=== PATIENT | female | born 1965 | race Caucasian/White ===

== ENCOUNTER 2018-08-02 18:50 | Emergency (ER) | payer OTHER ==
[2018-08-02] MEDS ORDERED: ALBUTEROL SO4 2.5/IPRATROPIUM 0.5 INH SOL 3 ML VIAL.NEB. NEB ONE ×2 (19:00→19:22)
--- NOTE | 2018-08-02 19:00 | PDOC ---
Rapid Medical Evaluation Chief Complaint: Shortness of Breath Time Seen by Provider: 08/02/18 18:55 Medical Evaluation: 08/02/18 18:56 Pt c/o: shortness of breath with no improvement with inhaler x 3 days, no risks factors for PE, Pt on brief exam: lcta, no wheezing, appears dyspneic Pt ordered for: cxr, duoneb, cbc, d-dimer Pt to proceed to the ED Discharge Disposition - Diagnosis Shortness of breath - Referrals - Patient Instructions - Post Discharge Activity
[2018-08-02 19:09] VITALS: BMI 31.1
[2018-08-02 19:42] LABS: EOS % 0.6 % (0-4.5); HEMATOCRIT 36.8 % (32.4-45.2); HEMOGLOBIN 12.6 GM/dL (10.7-15.3); LYMPH % 19.3 % (8-40); MCH 29.9 pg (25.7-33.7); MCHC 34.3 g/dl (32.0-36.0); MEAN CELL VOLUME 87.4 fl (80-96); MEAN PLT VOLUME 10.3 fl (7.5-11.1); MONO % 6.2 % (3.8-10.2); NEUT % 72.9 % (42.8-82.8); PLATELET COUNT 225 K/MM3 (134-434); RBC 4.21 M/mm3 (3.60-5.2); RDW 13.1 % (11.6-15.6); WHITE BLOOD COUNT 9.8 K/mm3 (4.0-10.0)
--- NOTE | 2018-08-02 21:26 | PDOC ---
History of Present Illness - General Chief Complaint: Shortness of Breath Stated Complaint: SOB Time Seen by Provider: 08/02/18 18:55 History Source: Patient Exam Limitations: No Limitations - History of Present Illness Initial Comments: 08/02/18 21:22 Best Contact: PCP:Cannot recall Pmhx:Asthma, hypothyroid Pshx: Arm cyst removed, TVH Allergies:NKDA FH:0 Social Hx: Cigarettes/ 0 Alcohol/ 0 Drugs/0 LMP:07/20/2017 53-year-old female presents to the emergency department complaining of shortness of breath 4 days. Patient states her was recently admitted to the hospital times one week ago causing her increased anxiety. Patient states her shortness of breath basically consists of hyperventilating on the thoughts of her being in the hospital. Patient denies fever, chills, nausea/vomiting, headache, dizziness, lightheadedness, facial pains, neck pain/ stiffness, back pains, chest pain, shortness of breath, abdominal pains, flank pains, urinary symptoms, Phill numbness or tingling sensation. Patient states she experienced similar symptoms previously when she has anxiety. Past History - Past Medical History Allergies/Adverse Reactions: Allergies Allergy/AdvReac Type Severity Reaction Status Date / Time No Known Allergies Allergy Verified 08/02/18 18:58 Asthma: Yes COPD: No - Surgical History Abdominal Surgery: (fibroids) - Suicide/Smoking/Psychosocial Hx Smoking History: Never smoked Information on smoking cessation initiated: No Hx Alcohol Use: No Drug/Substance Use Hx: No Review of Systems - Review of Systems Able to Perform ROS?: Yes Comments:: 08/02/18 21:24 CONSTITUTIONAL: Absent: fever, chills, diaphoresis, generalized weakness, malaise, loss of appetite HEENT: Absent: rhinorrhea, nasal congestion, throat pain, throat swelling, difficulty swallowing, mouth swelling, ear pain, eye pain, visual Changes CARDIOVASCULAR: Absent: chest pain, loss of consciousness, palpitations, irregular heart rate, peripheral edema RESPIRATORY: +hyperventilation/sob Absent: cough, dyspnea with exertion, orthopnea, wheezing, stridor, hemoptysis GASTROINTESTINAL: Absent: abdominal pain, abdominal distension, nausea, vomiting, diarrhea, constipation, melena, hematochezia GENITOURINARY: Absent: dysuria, frequency, urgency, hesitancy, hematuria, flank pain, genital pain MUSCULOSKELETAL: Absent: myalgia, arthralgia, joint swelling SKIN: Absent: rash, itching, pallor HEMATOLOGIC/IMMUNOLOGIC: Absent: easy bleeding, easy bruising, lymphadenopathy, frequent infections ENDOCRINE: Absent: unexplained weight gain, unexplained weight loss, heat intolerance, cold intolerance NEUROLOGIC: Absent: headache, focal weakness or paresthesias, dizziness, unsteady gait, seizure, mental status changes, bladder or bowel incontinence PSYCHIATRIC: Absent: anxiety, depression, suicidal or homicidal ideation, hallucinations. Is the patient limited Wolof proficient: No *Physical Exam - Vital Signs Last Vital Signs Temp Pulse Resp BP Pulse Ox 97.9 F 74 18 118/63 98 08/02/18 18:54 08/02/18 18:54 08/02/18 18:54 08/02/18 18:54 08/02/18 18:54 - Physical Exam Comments: 08/02/18 21:25 GENERAL: Well developed, well nourished. Awake and alert. No acute distress. HEENT: Normocephalic, atraumatic. PERRLA, EOMI. No conjunctival pallor. Sclera are non- icteric. Moist mucous membranes. Oropharynx is clear. NECK: Supple. Full ROM. No JVD. Carotid pulses 2+ and symmetric, without bruits. No thyromegaly. No lymphadenopathy. CARDIOVASCULAR: Regular rate and rhythm. No murmurs, rubs, or gallops. Distal pulses are 2+ and symmetric. PULMONARY: No evidence of respiratory distress. Lungs clear to auscultation bilaterally. No wheezing, rales or rhonchi. ABDOMINAL: Soft. Non-tender. Non-distended. No rebound or guarding. No organomegaly. Normoactive bowel sounds. MUSCULOSKELETAL Normal range of motion at all joints. No bony deformities or tenderness. No CVA tenderness. EXTREMITIES: No cyanosis. No clubbing. No edema. No calf tenderness. SKIN: Warm and dry. Normal capillary refill. No rashes. No jaundice. NEUROLOGICAL: Alert, awake, appropriate. Cranial nerves 2-12 intact. No deficits to light touch and temperature in face, upper extremities and lower extremities. No motor deficits in the in face, upper extremities and lower extremities. Normoreflexic in the upper and lower extremities. Normal speech. Toes are down- going bilaterally. Gait is normal without ataxia. PSYCHIATRIC: Cooperative. Good eye contact. Appropriate mood and affect. Moderate Sedation - Procedure Monitoring Vital Signs: Procedure Monitoring Vital Signs Temperature 97.9 F 08/02/18 18:54 Pulse Rate 74 08/02/18 18:54 Respiratory Rate 18 08/02/18 18:54 Blood Pressure 118/63 08/02/18 18:54 O2 Sat by Pulse Oximetry (%) 98 08/02/18 18:54 ED Treatment Course - LABORATORY CBC & Chemistry Diagram: 08/02/18 19:35 - ADDITIONAL ORDERS Additional order review: Laboratory Results 08/02/18 08/02/18 20:05 19:35 D-Dimer < 215 Cancelled 08/02/18 19:35 RBC 4.21 MCV 87.4 MCHC 34.3 RDW 13.1 MPV 10.3 Neutrophils % 72.9 Lymphocytes % 19.3 Monocytes % 6.2 Eosinophils % 0.6 Basophils % 1.0 - RADIOLOGY Radiology Studies Ordered: Category Date Time Status CHEST PA & LAT [RAD] Stat Radiology 08/02/18 19:45 Taken Radiograph Interpretation: 08/02/18 21:26 CXR 2v NAD - Medications Given in the ED: ED Medications Discontinued Medications Generic Name Dose Route Start Last Admin Trade Name Freq PRN Reason Stop Dose Admin Albuterol/Ipratropium 1 amp 08/02/18 19:00 08/02/18 19:15 Duoneb - NEB 08/02/18 19:01 1 amp ONCE ONE Administration *DC/Admit/Observation/Transfer Diagnosis at time of Disposition: Shortness of breath, Anxiety - Discharge Dispostion Disposition: HOME Condition at time of disposition: Stable Decision to Admit order: No - Referrals Referrals: Abdulaziz Aldrich [Primary Care Provider] - - Patient Instructions Printed Discharge Instructions: DI for Anxiety -- Adult Additional Instructions: Take deep breaths Rest Follow with your physician within the next 48 hours \ Return back to the ER for severe/persistent or worsening symptoms - Post Discharge Activity
[2018-08-02 21:38] VITALS: BP 120/68; PULSE 63; TEMP 98.1
== END 2018-08-02 21:38 | disposition home or self-care (01) ==
LOC: JERFT 18:50
PROC: 3E0F7GC Introduction of Other Therapeutic Substance into Respiratory Tract, Via Natural or Artificial Opening (ICD-10-PCS; principal; 2018-08-02)
DX: F41.0 Panic disorder [episodic paroxysmal anxiety] (principal); R06.02 Shortness of breath; J45.909 Unspecified asthma, uncomplicated
CPT/HCPCS: 36415; 71046-TC-FY; 85025; 85379; 99283-25